=== PATIENT | female | born 1985 | race Caucasian/White ===

== ENCOUNTER 2017-04-23 06:48 | Inpatient (IN) | payer BC ==
[~2017-04-23] VITALS: Ht 170.2 cm; Wt 106.4 kg
[~2017-04-23 06:48] MED LIST: ALLEGRA 180MG180 MG; LORTAB 5/500 501 TAB PO; NO HOME MEDICATIONS
[2017-06-14] VITALS (42 sets, daily range): BP systolic 100–158; BP diastolic 55–91; PULSE 65–88; TEMP 97.5–98.6
[2017-06-14] MEDS ORDERED: CARAFATE 1GM1 G PO (07:30)
[2017-06-14] MEDS ORDERED: ZANTAC 7575 MG PO (07:31)
[2017-06-14 08:09] LABS: BASO % 0.4 % (0.0-2.0); EOS # 0.2 (0.0-0.7); GRAN % 70.9 % (42.2-75.2); LYMPH # 1.7 (1.2-3.4); LYMPH % 20.3 % (20.0-51.0); MEAN CELL VOLUME 94 fl (80.0-100.0); MEAN CORPUSCULAR HGB CONC 35 g/dl (33.0-37.0); MEAN PLATELET VOLUME 12.4 fl (7.4-10.4); MONO # 0.5 (0.1-0.6); MONO % 5.8 % (1.7-9.3); PLATELET COUNT 181 K/mm3 (130-400); RED BLOOD COUNT 3.53 M/mm3 (4.10-5.30); REDCELL DISTRIBUTION WIDTH-CV 14.8 % (11.5-14.5)
[2017-06-14 08:11] LABS: HEMATOCRIT 33.3 % (37.0-47.0); HEMOGLOBIN 11.5 g/dl (12.5-16.0); MEAN CORPUSCULAR HEMOGLOBIN 33 pg (27.0-31.0)
[2017-06-14] MEDS ORDERED: MOTRIN 800800 MG/TAB PO (15:47)
[2017-06-14] MEDS ORDERED: PERCOCET 325 MG1 TA2 PO (15:47)
[2017-06-15 03:40] VITALS: BP 101/55; PULSE 70; TEMP 98.9
[2017-06-15 07:00] VITALS: BP 99/62; PULSE 77; TEMP 98.1
[2017-06-15 15:40] VITALS: BP 104/67; PULSE 78; TEMP 98.1
[2017-06-15 19:00] VITALS: BP 102/59; PULSE 78; TEMP 98.4
[2017-06-16 09:00] VITALS: BP 119/77; PULSE 70; TEMP 98.2
[2017-06-16 16:30] VITALS: BP 106/72; PULSE 78; TEMP 98.7
== END 2017-06-16 17:25 | disposition home or self-care (01) | DRG 775 ==
LOC: LDR 06-14 07:07 → OB 06-14 20:32 → LDRO 06-27 06:48 → EDSTATUS 06-27 07:13
PROVIDERS: Obstetrics & Gynecology
PROC: 10E0XZZ Delivery of Products of Conception, External Approach (ICD-10-PCS; principal; 2017-06-14)
PROC: 0KQM0ZZ Repair Perineum Muscle, Open Approach (ICD-10-PCS; 2017-06-14)
DX: O99.824 Streptococcus B carrier state complicating childbirth (principal); O99.334 Smoking (tobacco) complicating childbirth; F17.210 Nicotine dependence, cigarettes, uncomplicated; O70.1 Second degree perineal laceration during delivery; Z3A.40 40 weeks gestation of pregnancy; Z37.0 Single live birth
CPT/HCPCS: J0690; J2590; J2795; J7120